=== PATIENT | female | born 1960 | race Caucasian/White ===

== ENCOUNTER → 2020-09-30 | Day surgery (SDC) | payer OTHER ==
[~2020-09-30] MED LIST: ABILIFY10 MG PO; ABILIFY5 MG PO; ALLEGRA ALLERG180 MG PO; ALREX5 ML OU; AMLODIPINE BESY10 MG PO; ASCORBIC ACID500 MG PO; CELECOXIB200 MG PO; D3-501250 MCG PO; DOXYCYCLINE HYC50 MG PO; DULOXETINE HCL30 MG PO; DULOXETINE HCL60 MG PO; FLOMAX 0.4 MG0.4 MG PO; HYDROCODON-ACE1 EAC2 PO; HYDROXYCHLOROQ200 MG PO; LISINOPRIL20 MG PO; METFORMIN HCL500 M3 PO; MONTELUKAST SOD10 MG PO; PATADAY2.5 ML OU; PERCOCET 5-3251 EACH PO; PILOCARPINE HCL5 MG PO; TEMAZEPAM15 MG PO; TURMERIC500 M1 PO; XIIDRA1 EACH OU
[2020-09-30 09:05] LABS: HCT 39.6 % (37.0-47.0); HGB 13.4 g/dl (12.5-16.0); MCH 29.4 pg (25.0-31.0); MCHC 33.8 g/dL (32.0-36.0); MCV 86.8 fL (78.0-100.0); MPV 9.8 fL (6.0-9.5); RBC 4.56 M/uL (4.20-5.40); RDW 13.2 % (11.5-14.0); WBC 6.2 K/uL (4.0-10.5)
[2020-09-30 09:32] LABS: ALBUMIN 3.8 g/dL (3.4-5.0); BILIRUBIN - TOTAL 0.5 mg/dL (0.2-1.0); CREATININE 0.5 mg/dL (0.51-0.95); GLOBULIN (CALCULATION) 3.8 g/dL; TOTAL PROTEIN 7.6 g/dL (6.4-8.2)
== END | disposition home or self-care (01) ==
LOC: FAS 07:00
PROVIDERS: Orthopaedic Surgery
DX: M75.121 Complete rotator cuff tear or rupture of right shoulder, not specified as traumatic (principal); M75.51 Bursitis of right shoulder; I10 Essential (primary) hypertension; M35.00 Sjogren syndrome, unspecified; G47.30 Sleep apnea, unspecified; F41.9 Anxiety disorder, unspecified; K76.0 Fatty (change of) liver, not elsewhere classified; Z79.2 Long term (current) use of antibiotics; Z79.84 Long term (current) use of oral hypoglycemic drugs; Z79.899 Other long term (current) drug therapy
CPT/HCPCS: 36415; 71045; 80053; 93005; C1713; J0171; J0690; J0735; J1100; J2250; J2405; J2704; J2795; J3010; J7120

== ENCOUNTER 2020-11-24 21:11 | Emergency (ER) | payer OTHER ==
[~2020-11-24 21:11] MED LIST changes: -FLOMAX 0.4 MG0.4 MG PO; -HYDROCODON-ACE1 EAC2 PO
[2020-11-24 22:13] LABS: BILIRUBIN NEGATIVE (NEGATIVE); BLOOD TRACE-INTACT Ery/uL (NEGATIVE); CLARITY CLEAR (CLEAR); COLOR YELLOW (YELLOW); GLUCOSE (U) NORMAL (NORMAL); LEUKOCYTES NEGATIVE Leu/uL (NEGATIVE); NITRITE NEGATIVE (NEGATIVE); PROTEIN NEGATIVE (NEGATIVE); UROBILINOGEN 0.2 mg/dL (0.2-1.0); pH 6.5 (5.0-9.0)
[2020-11-24 22:20] LABS: BASOPHIL 0.5 % (0-2); EOSINOPHIL 0.4 % (0-5); HGB 14.1 g/dl (12.5-16.0); LYMPHOCYTE 11.8 % (15-48); MCH 29.1 pg (25.0-31.0); MCHC 33.6 g/dL (32.0-36.0); MCV 86.8 fL (78.0-100.0); MONOCYTE 1.5 % (0-12); MPV 8.9 fL (6.0-9.5); NEUTROPHIL 84.9 % (41-80); NRBC 0; PLT 231 K/uL (150-400); RBC 4.84 M/uL (4.20-5.40); RDW 13.6 % (11.5-14.0); WBC 16.4 K/uL (4.0-10.5)
[2020-11-24 22:20] LABS: AMORPHOUS URATES CRYSTALS TRACE; BACTERIA TRACE; MUCOUS TRACE; URINARY WBC RARE
[2020-11-24 22:46] LABS: ALBUMIN 4.1 g/dL (3.4-5.0); BILIRUBIN - TOTAL 0.6 mg/dL (0.2-1.0); BUN/CREAT RATIO (CALC) 23.5 RATIO; CREATININE 0.68 mg/dL (0.51-0.95); GLOBULIN (CALCULATION) 4.4 g/dL; POTASSIUM 3.5 mmol/L (3.5-5.1); TOTAL PROTEIN 8.5 g/dL (6.4-8.2)
[2020-11-24] MEDS ORDERED: FLOMAX 0.4 MG0.4 MG PO (23:38)
[2020-11-24] MEDS ORDERED: HYDROCODON-ACE1 EAC2 PO (23:38)
== END 2020-11-24 23:50 | disposition home or self-care (01) ==
LOC: FER 21:11
PROVIDERS: Nurse Practitioner Family
DX: N13.2 Hydronephrosis with renal and ureteral calculous obstruction (principal); E11.9 Type 2 diabetes mellitus without complications; I10 Essential (primary) hypertension; Z98.890 Other specified postprocedural states
CPT/HCPCS: 36415; 80053; 81001; 85025; J1885; J2405; J7030